=== PATIENT | male | born 1950 | race Caucasian/White ===

== ENCOUNTER 2020-12-20 12:43 | Outpatient (CLI) | payer MEDICARE, OTHER, SELFPAY ==
--- NOTE | 2020-12-20 13:00 | ECG_ITS ---
Measurements Intervals Protem Rate: 68 P: 9 MA: 215 QRS: -24 QRSD: 121 T: -29 QT: 376 QTc: 403 Interpretive Statements SINUS RHYTHM WITH FIRST DEGREE AV BLOCK DELAYED PRECORDIAL R/S TRANSITION VOLTAGE CRITERIA FOR LVH INFERIOR INFARCT, AGE INDETERMINATE ABNORMAL ECG Electronically Signed On 12-20-2020 14:42:33 CDT by Harvey Tidwell D.O.
== END 2020-12-20 12:44 | disposition home or self-care (01) ==
LOC: ANHSURGERY 12:50
PROVIDERS: PCP Family Medicine; Visit Provider Podiatrist Foot & Ankle Surgery
DX: Z01.818 Encounter for other preprocedural examination (principal); I10 Essential (primary) hypertension; R94.31 Abnormal electrocardiogram [ECG] [EKG]
CPT/HCPCS: 93005

== ENCOUNTER → 2020-12-24 02:05 | Outpatient (CLI) | payer MEDICARE, OTHER, SELFPAY ==
[2020-12-24 19:24] LABS: SARS-CoV-2 RNA PCR Negative
== END ==
PROVIDERS: PCP Family Medicine; Visit Provider Podiatrist Foot & Ankle Surgery
DX: Z01.812 Encounter for preprocedural laboratory examination (principal); Z20.822 Contact with and (suspected) exposure to COVID-19
CPT/HCPCS: C9803; U0003; U0005

== ENCOUNTER 2020-12-27 00:57 | Day surgery (SDC) | payer MEDICARE, OTHER, SELFPAY ==
[2020-12-18 13:23] VITALS: BMI 28.0
[2020-12-27] VITALS (8 sets, daily range): BP systolic 117–130; BP diastolic 72–84; PULSE 58–72; RESP 15–18; TEMP 36.5–36.6; O2SAT 97–100
[2020-12-27] MEDS: LACTATED RINGERS 1,000 ML 30 ML IV CONT ×3 (11:25→13:50)
--- NOTE | 2020-12-27 12:39 | P.PNAN_ITS ---
Anes - Initial Pre Proc Eval Procedure: Operation Date: 12/27/20 13:00 Proposed Procedures p Exostectomy Metatarsal Head First Toe Right Foot - Kain Martinez DPM Date/Time: 12/27/20 12:39 Surgeon: Kain Martinez DPM Pre Op Diagnosis: exotosis first toe right foot Patient Data Age: 70 Gender: M Height: 5 ft 6 in Weight: 82.4 kg Last Vital Signs Temp 36.6 C 12/27/20 11:11 Pulse 64 12/27/20 11:11 Resp 18 12/27/20 11:11 BP 118/84 12/27/20 11:11 Pulse Ox 99 12/27/20 11:11 Allergies Allergy/AdvReac Type Severity Reaction Status Date / Time No Known Allergies Allergy Unverified 12/27/20 11:36 Home Medications Medication Instructions Recorded Confirmed Type amlodipine 5 mg PO QAM 12/18/20 12/18/20 History aspirin [Aspir-81] 81 mg PO DAILY 12/18/20 12/18/20 History carvedilol 12.5 mg PO BID 12/18/20 12/18/20 History ezetimibe 10 mg PO DAILY 12/18/20 12/18/20 History lamotrigine [Lamictal] 200 mg PO BID 12/18/20 12/18/20 History levothyroxine 50 mcg PO QAM 12/18/20 12/18/20 History simvastatin 40 mg PO HS 12/18/20 12/18/20 History valsartan 160 mg PO QAM 12/18/20 12/18/20 History Patient hx anesthesia problems: none Family hx anesthesia problems: none [facility] Past Medical History Medical History (Updated 12/27/20 @ 12:40 by Deandre Herrera MD) CAD (coronary artery disease) HTN (hypertension) Hyperlipidemia Hypothyroidism Seizure Surgical History Surgical History Hx of CABG Social History Social History Smoking packs per day: 1 Smoking cigarettes per day: 20.0 Years smoked: 10 Smoking pack-years: 10.00 Smoking status: Former smoker Smoking end date: 02/21/84 Alcohol intake: current Drinks per week: 2 Substance use: never Living arrangements: with family Additional living arrangements comments: [facility] Spiritual care concerns: No Anes - Eval Final PreProcedure Day of Procedure 12/27/20 12:39 Patient weight: overweight Heart: regular rate and rhythm Lungs: clear to auscultation Airway: Mallampati scale class II Neurological: alert and oriented Last oral intake: >/= 8 hours ASA classification: III Emergent: no Anesthetic plan: proceed Anesthesia type and monitoring: general LMA and standard monitoring Informed Consent: The patient's anesthetic plan and its attendant risks and benefits were discussed with the patient/family/POA. Questions were solicited and answers provided to the satisfaction of the patient/family/POA.
--- NOTE | 2020-12-27 12:46 | WPDHPUPDATE1 ---
History and Physical Update Update Date/Time: 12/27/20 12:46 History and Physical has been reviewed, including an updated exam of the patient. There are NO changes in the patient's condition. Risks, benefits, and alternatives have been discussed and questions answered. Patient agrees to proceed with procedure.
[2020-12-27] MEDS: ceFAZolin 2 GM/D5W 50 ML 2 GM/50 ML BAG IVPB (13:04)
[2020-12-27] MEDS: BUPIVACAINE HCL 0.5% PF 30 ML VIAL INFILTRATE (13:33)
[2020-12-27] MEDS: NEOMYCIN/POLYMYXIN/BACITRACIN OINTMENT PACKET 1 PACKET TOPICAL (13:42)
--- NOTE | 2020-12-27 13:48 | P.OP_ITS ---
Procedure Note - Detailed Date of procedure: 12/27/20 Pre-op diagnosis: exotosis first toe right foot Post-op diagnosis: same Procedure performed: Exostectomy of the 1st MTH right foot Description of procedure: Under monitored sedation patient was brought into the operating room, placed on the operating table. Following general anesthesia the foot was then scrubbed, prepped, and draped in the usual aseptic manner. Attention was then directed to the dorsal right 1st MPJ. An incision was made and deepened to the jointi using sharp and blunt dissection with great care taken to identify and retract all vital, neural and vascular structures. A capsular incision was made and the 1st MTH and base of the proximal phalanx was exposed. All loose bone and the dorsal and medial exostosis were resected. All rough edges were smoothed with the aubrey. The area was then irrigated with sterile saline. The deep tissue was repaired using 3-0 vicryl and the skin was repaired using 5-0 nylon The wounds were then covered with a dry, sterile compressive dressing consisting of Steristrips, antibiotic ointment, Adaptic, 4 x 4?s, Haritha and Coban. The ankle tourniquet was deflated and prompt capillary refill response noted to all digits of the right foot. Patient tolerated procedure and anesthesia well. He was transferred to the recovery room with vital signs stable and neurovascular status intact to all digits of the right foot. Following a period of post-operative monitoring the patient will be discharged home with written and oral post-operative instructions. Implants: none Anesthesia: GLMA Surgeon: Kain Martinez DPM Powder Blender And Pourer: None Estimated blood loss (mL): 5 Drains: No Packing: No Pathology: none sent Complications: No immediate complications Condition: stable Disposition: PACU
--- NOTE | 2020-12-27 14:02 | SUR.PHASEI ---
1400- pt waking up. seizure guardrails are in place on either side
== END 2020-12-27 15:47 | disposition home or self-care (01) ==
PROVIDERS: PCP Family Medicine; Visit Provider Podiatrist Foot & Ankle Surgery
PROC: (CPT 28108; principal; 2020-12-27 13:00)
DX: M25.774 Osteophyte, right foot (principal); I10 Essential (primary) hypertension; I25.10 Atherosclerotic heart disease of native coronary artery without angina pectoris; E78.5 Hyperlipidemia, unspecified; E03.9 Hypothyroidism, unspecified; G40.909 Epilepsy, unspecified, not intractable, without status epilepticus; Z95.1 Presence of aortocoronary bypass graft; Z87.891 Personal history of nicotine dependence
CPT/HCPCS: 28108; J0690; J2250; J2405; J2704; J3010; J7120